=== PATIENT | male | born 1940 | race Two or more races ===

== ENCOUNTER → 2017-06-10 | Outpatient (CLI) | payer MEDICARE, OTHER ==
--- NOTE | 2017-06-10 13:41 | XR ---
EXAMINATION TYPE: XR chest 2V DATE OF EXAM: 06/10/2017 COMPARISON: 02/14/2016 HISTORY: Shortness of breath TECHNIQUE: Frontal and lateral views of the chest are obtained. FINDINGS: Scattered senescent parenchymal changes noted. Hyperinflation compatible with COPD. No evidence for infiltrate. No evidence for atelectasis. Prominent right epicardial fat pad. Heart size is stable. Mediastinal structures are stable and grossly unremarkable. No evidence for hilar prominence. Degenerative changes dorsal spine. IMPRESSION: 1. No evidence for acute pulmonary disease.
== END | disposition home or self-care (01) ==
LOC: RADXRMAIN 13:20
PROVIDERS: ATTEND Family Medicine
DX: J18.9 Pneumonia, unspecified organism (principal)
CPT/HCPCS: 71020

== ENCOUNTER → 2018-05-19 | Outpatient (CLI) | payer MEDICARE, OTHER ==
--- NOTE | 2018-05-19 17:27 | XR ---
EXAMINATION TYPE: XR lumbosacral spine min 4V DATE OF EXAM: 05/19/2018 COMPARISON: NONE HISTORY: 77-year-old male chronic hip and back pain. M25.552, M25.551, M54.5 TECHNIQUE: 5 views FINDINGS: 5 lumbar type vertebral bodies. Facet arthropathy mid to lower lumbar spine. No pars interarticularis defect. Mild to moderate multilevel degenerative disc disease characterized by variable mild disc in terspace narrowing and endplate spondylosis. Vertebral body heights are preserved and alignment is ma intained. Degenerative thinning of the interspinous ligaments in the lower lumbar spine with abutment and near abutment of the spinous processes. IMPRESSION: 1. Facet arthropathy mid to lower lumbar spine and mild to moderate multilevel degenerative disc dise ase. 2. No vertebral compression collapse or malalignment. 3. Baastrup's disease.
--- NOTE | 2018-05-19 17:29 | XR ---
EXAMINATION TYPE: XR Hip Bilateral Complete DATE OF EXAM: 05/19/2018 COMPARISON: NONE HISTORY: 77-year-old male chronic hip and back pain TECHNIQUE: 2 views each side FINDINGS: Mild degenerative change at both hips with mild superolateral narrowing of hip joint space, right gre ater than left, marginal spurring, and mild subchondral sclerosis. No acute fracture, subluxation, or dislocation. IMPRESSION: Mild bilateral hip osteoarthrosis, right greater than left. No acute osseous abnormality seen.
== END | disposition home or self-care (01) ==
LOC: RADXRMAIN 12:50
PROVIDERS: ATTEND Family Medicine
DX: M51.36 Other intervertebral disc degeneration, lumbar region (principal); M46.96 Unspecified inflammatory spondylopathy, lumbar region; M48.26 Kissing spine, lumbar region; M16.0 Bilateral primary osteoarthritis of hip
CPT/HCPCS: 72110; 73521

== ENCOUNTER 2019-12-14 16:00 | Emergency (ER) | payer MEDICARE, OTHER ==
[2019-12-14 16:08] VITALS: PULSE 62
[2019-12-14] MEDS ORDERED: SODIUM CHLORIDE 0.9% 500 ML 500 ML IV STA (16:24)
[2019-12-14] MEDS ORDERED: SODIUM CHLORIDE 0.9% 1,000 ML IV STA (16:24)
[2019-12-14 17:02] LABS: Basophils % (A) 0 %; Eosinophils # (A) 0.1 k/uL (0-0.7); Eosinophils % (A) 1 %; HCT 43.7 % (39.0-53.0); HGB 14.3 gm/dL (13.0-17.5); Lymphocytes # (A) 0.9 k/uL (1.0-4.8); Lymphocytes % (A) 8 %; MCH 29.8 pg (25.0-35.0); MCHC 32.7 g/dL (31.0-37.0); MCV 91.2 fL (80.0-100.0); Mean Platelet Volume 7.8; Monocytes # (A) 0.6 k/uL (0-1.0); Monocytes % (A) 5 %; Neutrophils % (A) 84 %; Platelet Count 142 k/uL (150-450); RBC 4.79 m/uL (4.30-5.90); RDW 13.3 % (11.5-15.5); WBC 11.9 k/uL (3.8-10.6)
[2019-12-14 17:07] LABS: ALT 71 U/L (4-49); AST 106 U/L (17-59); African American GFR (CKD) 72 (>60 ml/min/1.73 sqM); Albumin 3.5 g/dL (3.5-5.0); Alkaline Phosphatase 71 U/L (38-126); Amylase <30 U/L (30-110); Anion Gap 9 mmol/L; Blood Urea Nitrogen 34 mg/dL (9-20); Calcium 8.8 mg/dL (8.4-10.2); Carbon Dioxide 24 mmol/L (22-30); Chloride 103 mmol/L (98-107); Glucose 192 mg/dL (74-99); Non-African American GFR(CKD) 62 (>60 ml/min/1.73 sqM); Potassium 3.9 mmol/L (3.5-5.1); Sodium 136 mmol/L (137-145); Total Protein 6.8 g/dL (6.3-8.2)
[2019-12-14 17:08] LABS: Partial Thromboplastin Time 23.7 sec (22.0-30.0)
--- NOTE | 2019-12-14 17:19 | XR ---
EXAMINATION TYPE: XR KUB DATE OF EXAM: 12/14/2019 5:03 PM CLINICAL HISTORY: Diarrhea for 3 days and weakness. Abdominal pain. TECHNIQUE: Three Upright KUB images of the abdomen are obtained. COMPARISON: None. FINDINGS: Scattered gas is seen in non-distended stomach. Gas is seen in non-distended colon. Some pa ucity of small bowel gas. Cholecystectomy clips are seen. Additional displaced clip into the pelvis o lui sacrum. Moderate narrowing of both hip joints. No pneumoperitoneum. IMPRESSION: Overall nonspecific but favor nonobstructive bowel gas pattern.
--- NOTE | 2019-12-14 17:26 | CT ---
EXAMINATION TYPE: CT brain cspine wo con DATE OF EXAM: 12/14/2019 COMPARISON: NONE HISTORY: confusion weakness and neck pain. CT DLP: 1702.5 mGycm. Automated Exposure Control for Dose Reduction was Utilized. TECHNIQUE: CT scan of the head and cervical spine are performed without contrast. FINDINGS: There is no acute intracranial hemorrhage or midline shift identified. Mild to moderate v entricular and sulcal prominence. Heck-white matter differentiation is fairly well maintained. The gl obes are intact and the visualized sinuses are clear. Cervical spine is visualized in its entirety from C1 through upper thoracic levels and demonstrates s traightened alignment without evidence of acute fracture or dislocation. Prevertebral soft tissue jose de jesus ears within normal limits. The C1-C2 articulation is within normal limits on the coronal images. Ve rtebral body heights are maintained. Mild disc space narrowing C5-C6 and C6-C7 levels with mild to mo derate spurring. Axial images show uncovertebral facet degenerative change. C4-C5 level causing moder ate right-sided narrowing. IMPRESSION: 1. There is no acute fracture or dislocation evident in the cervical spine. 2. No acute intracranial hemorrhage or midline shift is seen.
[2019-12-14] MEDS ORDERED: SODIUM CHLORIDE 0.9% 1,000 ML IV ONE (17:30)
--- NOTE | 2019-12-14 17:31 | ED ---
Nausea/Vomiting/Diarrhea HPI - General Chief complaint: Nausea/Vomiting/Diarrhea Stated complaint: Confusion, Diarrhea Time Seen by Provider: 12/14/19 16:24 Source: patient Mode of arrival: wheelchair Limitations: no limitations - History of Present Illness Initial comments: 79-year-old male presenting today for chief complaint of generalized weakness x 3 days. Patient states he has had diarrhea for the past 2 days. Family states he seemed confused on Friday. Patient's son who is bedside states that he seems much better today does not seem confused however on Friday patient seemed to have fallen out of bed refused to come to the ER. Patient denies any current symptoms he states his diarrhea has been getting better. He states he did feel weak the past 2 days but feels significantly better today. Patient is alert and oriented 4 in no distress. Patient denies fevers, cough, chest pain, shortness of breath. Denies headaches, dizziness, neck pain, speech or visual changes, denies weakness or sensation deficits. Patient denies leg swelling. Patient denies abdominal pin or vomiting. Patient appears well on arrival no acute distress. - Related Data Previous Rx's Medication Instructions Recorded Cefpodoxime Proxetil [Vantin] 200 mg PO Q12HR 10 Days #20 tab 12/14/19 Allergies Allergy/AdvReac Type Severity Reaction Status Date / Time No Known Allergies Allergy Verified 12/14/19 16:08 Review of Systems ROS Statement: Those systems with pertinent positive or pertinent negative responses have been documented in the HPI. ROS Other: All systems not noted in ROS Statement are negative. Past Medical History Past Medical History: Hypertension History of Any Multi-Drug Resistant Organisms: None Reported Past Surgical History: Cholecystectomy Past Psychological History: No Psychological Hx Reported Smoking Status: Never smoker Past Alcohol Use History: None Reported Past Drug Use History: None Reported General Exam - General Exam Comments Initial Comments: General: The patient is awake and alert, in no distress, and does not appear acutely ill. Eye: + 3mm pupils are equal, round and reactive to light, extra-ocular movements are intact. No nystagmus. There is normal conjunctiva bilaterally. No signs of icterus. No raccoon no Alva's Ears, nose, mouth and throat: There are moist mucous membranes and no oral lesions. Neck: The neck is supple, there is no tenderness or JVD. Cardiovascular: There is a regular rate and rhythm. No murmur, rub or gallop is appreciated. Respiratory: Lungs are clear to auscultation, respirations are non-labored, breath sounds are equal. No wheezes, stridor, rales, or rhonchi. Gastrointestinal: Soft, non-distended, non-tender abdomen without masses or organomegaly noted. There is no rebound or guarding present. Musculoskeletal: Normal ROM, no tenderness. Strength 5/5. Sensation intact. Ra dial pulses equal bilaterally 2+. Neurological: A&O x 3. CN II-XII intact, There are no obvious motor or sensory deficits. Coordination appears grossly intact. Speech is normal. Skin: Skin is warm and dry and no rashes or lesions are noted. No LE edema/or swelling. Psychiatric: Cooperative, appropriate mood & affect, normal judgment. Limitations: no limitations Course Vital Signs 12/14/19 12/14/19 16:03 19:34 Temperature 98.0 F 98.7 F Pulse Rate 62 62 Respiratory 20 16 Rate Blood Pressure 126/70 137/77 O2 Sat by Pulse 98 97 Oximetry Medical Decision Making - Medical Decision Making 39-year-old male presenting for 2-3 days of diarrhea that is now subsiding however was confused per family 2 days ago. Patient at baseline now per family. Patient had an episode where he seemed confused in a generalized sense approximately 3 weeks ago in addition to episode 2 days ago. Deny stroke like symptoms. Localizing symptoms aside from the diarrhea. Patient has no other co mplaints. Labs mild leukocytosis. Patient UA consistent with UTI which may be cause of symptoms along with dehydration from diarrhea that has almost resolved. No fevers. Patient appears well, CT brain (-) for acute process. Patient offered admission, refused stating he would like to go home and trial oral antibiotics. Given 1 dose of rocephin prior to discharge.. Patient family is also agreeable to care plan and discharge--patient discharged appearing well. - Lab Data Result diagrams: 12/14/19 16:44 12/14/19 16:44 Lab Results 12/14/19 12/14/19 12/14/19 Range/Units 16:44 16:44 16:44 WBC 11.9 H (3.8-10.6) k/uL RBC 4.79 (4.30-5.90) m/uL Hgb 14.3 (13.0-17.5) gm/dL Hct 43.7 (39.0-53.0) % MCV 91.2 (80.0-100.0) fL MCH 29.8 (25.0-35.0) pg MCHC 32.7 (31.0-37.0) g/dL RDW 13.3 (11.5-15.5) % Plt Count 142 L (150-450) k/uL Neutrophils % 84 % Lymphocytes % 8 % Monocytes % 5 % Eosinophils % 1 % Basophils % 0 % Neutrophils # 10.0 H (1.3-7.7) k/uL Lymphocytes # 0.9 L (1.0-4.8) k/uL Monocytes # 0.6 (0-1.0) k/uL Eosinophils # 0.1 (0-0.7) k/uL Basophils # 0.0 (0-0.2) k/uL PT 10.0 (9.0-12.0) sec INR 1.0 (<1.2) APTT 23.7 (22.0-30.0) sec Sodium 136 L (137-145) mmol/L Potassium 3.9 (3.5-5.1) mmol/L Chloride 103 (98-107) mmol/L Carbon Dioxide 24 (22-30) mmol/L Anion Gap 9 mmol/L BUN 34 H (9-20) mg/dL Creatinine 1.12 (0.66-1.25) mg/dL Est GFR (CKD-EPI)AfAm 72 (>60 ml/min/1.73 sqM) Est GFR (CKD-EPI)NonAf 62 (>60 ml/min/1.73 sqM) Glucose 192 H (74-99) mg/dL Plasma Lactic Acid Bill (0.7-2.0) mmol/L Calcium 8.8 (8.4-10.2) mg/dL Total Bilirubin 1.0 (0.2-1.3) mg/dL AST 106 H (17-59) U/L ALT 71 H (4-49) U/L Alkaline Phosphatase 71 (38-126) U/L Total Protein 6.8 (6.3-8.2) g/dL Albumin 3.5 (3.5-5.0) g/dL Amylase <30 L (30-110) U/L Lipase 53 (23-300) U/L Urine Color Urine Appearance (Clear) Urine pH (5.0-8.0) Ur Specific [place] (1.001-1.035) Urine Protein (Negative) Urine Glucose (UA) (Negative) Urine Ketones (Negative) Urine Blood (Negative) Urine Nitrite (Negative) Urine Bilirubin (Negative) Urine Urobilinogen (<2.0) mg/dL Ur Leukocyte Esterase (Negative) Urine RBC (0-5) /hpf Urine WBC (0-5) /hpf Urine WBC Clumps (None) /hpf Urine Bacteria (None) /hpf Urine Mucus (None) /hpf 12/14/19 12/14/19 Range/Units 16:44 18:30 WBC (3.8-10.6) k/uL RBC (4.30-5.90) m/uL Hgb (13.0-17.5) gm/dL Hct (39.0-53.0) % MCV (80.0-100.0) fL MCH (25.0-35.0) pg MCHC (31.0-37.0) g/dL RDW (11.5-15.5) % Plt Count (150-450) k/uL Neutrophils % % Lymphocytes % % Monocytes % % Eosinophils % % Basophils % % Neutrophils # (1.3-7.7) k/uL Lymphocytes # (1.0-4.8) k/uL Monocytes # (0-1.0) k/uL Eosinophils # (0-0.7) k/uL Basophils # (0-0.2) k/uL PT (9.0-12.0) sec INR (<1.2) APTT (22.0-30.0) sec Sodium (137-145) mmol/L Potassium (3.5-5.1) mmol/L Chloride (98-107) mmol/L Carbon Dioxide (22-30) mmol/L Anion Gap mmol/L BUN (9-20) mg/dL Creatinine (0.66-1.25) mg/dL Est GFR (CKD-EPI)AfAm (>60 ml/min/1.73 sqM) Est GFR (CKD-EPI)NonAf (>60 ml/min/1.73 sqM) Glucose (74-99) mg/dL Plasma Lactic Acid Bill 1.5 (0.7-2.0) mmol/L Calcium (8.4-10.2) mg/dL Total Bilirubin (0.2-1.3) mg/dL AST (17-59) U/L ALT (4-49) U/L Alkaline Phosphatase (38-126) U/L Total Protein (6.3-8.2) g/dL Albumin (3.5-5.0) g/dL Amylase (30-110) U/L Lipase (23-300) U/L Urine Color Yellow Urine Appearance Cloudy (Clear) Urine pH 6.0 (5.0-8.0) Ur Specific [place] 1.021 (1.001-1.035) Urine Protein 2+ H (Negative) Urine Glucose (UA) Negative (Negative) Urine Ketones Trace H (Negative) Urine Blood Moderate H (Negative) Urine Nitrite Negative (Negative) Urine Bilirubin Negative (Negative) Urine Urobilinogen 2.0 (<2.0) mg/dL Ur Leukocyte Esterase Large H (Negative) Urine RBC 51 H (0-5) /hpf Urine WBC >182 H (0-5) /hpf Urine WBC Clumps Many H (None) /hpf Urine Bacteria Many H (None) /hpf Urine Mucus Few H (None) /hpf Disposition Clinical Impression: UTI (urinary tract infection), Dehydration, History of confusion, Generalized weakness, Hx of fall Disposition: HOME SELF-CARE Condition: Good Instructions (If sedation given, give patient instructions): Urinary Tract Infection in Men (ED), Urinary Tract Infection in Older Adults (ED) Additional Instructions: Please use medication as discussed. Please follow-up with family doctor tomorrow as scheduled, please schedule an appointment with urology in next week. Please return to emergency room if the symptoms increase or worsen or for any other concerns. Prescriptions: Cefpodoxime Proxetil [Vantin] 200 mg PO Q12HR 10 Days #20 tab Is patient prescribed a controlled substance at d/c from ED?: No Referrals: Robert Beltran DO [Primary Care Provider] - 1-2 days Oneal Galloway MD [STAFF PHYSICIAN] - 1-2 days Time of Disposition: 19:03
[2019-12-14 18:47] LABS: Appearance,Urine Cloudy (Clear); Bacteria,Urine Many /hpf; Bilirubin,Urine Negative (Negative); Blood,Urine Moderate (Negative); Color,Urine Yellow; Glucose,Urine (UA) Negative (Negative); Ketones,Urine Trace (Negative); Leukocyte Esterase,Urine Large (Negative); Mucus,Urine Few /hpf; Nitrite,Urine Negative (Negative); Protein,Urine 2+ (Negative); RBC,Urine 51 /hpf (0-5); Specific Gravity,Urine 1.021 (1.001-1.035); WBC,Urine >182 /hpf (0-5)
[2019-12-14 19:37] VITALS: BP 137/77; RESP 16; TEMP 98.7
== END 2019-12-14 19:42 | disposition home or self-care (01) ==
LOC: EC 16:00
DX: N39.0 Urinary tract infection, site not specified (principal); E86.0 Dehydration; D72.829 Elevated white blood cell count, unspecified; I10 Essential (primary) hypertension; Z87.898 Personal history of other specified conditions; Z91.81 History of falling
CPT/HCPCS: 36415; 93005; 80053; 82150; 83605; 83690; 85025; 85610; 85730; 81001; 87086; 74018; 72125; 70450; 99285; 96365; 96361 ×2; J0696; 87077; 87186

== ENCOUNTER 2020-11-29 14:28 | Emergency (ER) | payer MEDICARE, OTHER ==
[2020-11-29 15:00] VITALS: RESP 16; TEMP 98
[2020-11-29] MEDS ORDERED: SODIUM CHLORIDE 0.9% 1,000 ML IV STA (15:10)
[2020-11-29 15:39] LABS: Basophils # (A) 0.1 k/uL (0-0.2); Basophils % (A) 1 %; Eosinophils # (A) 0.1 k/uL (0-0.7); Eosinophils % (A) 1 %; HCT 39.9 % (39.0-53.0); HGB 13.9 gm/dL (13.0-17.5); Lymphocytes # (A) 0.8 k/uL (1.0-4.8); Lymphocytes % (A) 13 %; MCH 30.6 pg (25.0-35.0); MCHC 34.9 g/dL (31.0-37.0); MCV 87.4 fL (80.0-100.0); Mean Platelet Volume 7.3; Monocytes # (A) 0.3 k/uL (0-1.0); Monocytes % (A) 6 %; Neutrophils # (A) 4.8 k/uL (1.3-7.7); Neutrophils % (A) 77 %; Platelet Count 233 k/uL (150-450); RBC 4.56 m/uL (4.30-5.90); RDW 13.3 % (11.5-15.5); WBC 6.3 k/uL (3.8-10.6)
[2020-11-29 15:50] LABS: Albumin 3.5 g/dL (3.5-5.0); Calcium 8.9 mg/dL (8.4-10.2); Total Bilirubin 0.7 mg/dL (0.2-1.3); Total Protein 6.8 g/dL (6.3-8.2)
--- NOTE | 2020-11-29 15:52 | ED ---
General Adult HPI - General Chief complaint: Weakness Stated complaint: sent from for dehydration Time Seen by Provider: 11/29/20 15:03 Source: patient, family, RN notes reviewed, old records reviewed Mode of arrival: wheelchair Limitations: no limitations - History of Present Illness Initial comments: 80-year-old male presenting for evaluation of fatigue, generalized weakness. He had been seen by his primary care physician and was sent to the emergency department for evaluation. He received [employer] vaccine approximately one week ago and has had weakness since. He denies vomiting but has had some diarrhea as well. No dysuria or hematuria. No headache. No measured fever. No focal numbness or weakness. No central chest pain. He was sent in by his primary care physician to rule out blood clots as they had noted some bilateral lower extremity tenderness on exam. - Related Data Previous Rx's Medication Instructions Recorded Cefpodoxime Proxetil [Vantin] 200 mg PO Q12HR 10 Days #20 tab 12/14/19 Allergies Allergy/AdvReac Type Severity Reaction Status Date / Time No Known Allergies Allergy Verified 12/14/19 16:08 Review of Systems ROS Statement: Those systems with pertinent positive or pertinent negative responses have been documented in the HPI. ROS Other: All systems not noted in ROS Statement are negative. Past Medical History Past Medical History: Hypertension History of Any Multi-Drug Resistant Organisms: None Reported Past Surgical History: Cholecystectomy Past Psychological History: No Psychological Hx Reported Smoking Status: Never smoker Past Alcohol Use History: None Reported Past Drug Use History: None Reported General Exam Limitations: no limitations General appearance: alert, in no apparent distress Head exam: Present: atraumatic, normocephalic Eye exam: Present: normal appearance, PERRL ENT exam: Present: mucous membranes dry Neck exam: Present: normal inspection. Absent: tenderness, meningismus Respiratory exam: Present: normal lung sounds bilaterally. Absent: respiratory distress, wheezes Cardiovascular Exam: Present: regular rate, normal rhythm GI/Abdominal exam: Present: soft. Absent: distended, tenderness, guarding Extremities exam: Present: normal inspection, normal capillary refill. Absent: pedal edema, calf tenderness Neurological exam: Present: alert, oriented X3, CN II-XII intact. Absent: motor sensory deficit Psychiatric exam: Present: normal affect, normal mood Skin exam: Present: warm, dry, intact. Absent: cyanosis, diaphoretic Course Vital Signs 11/29/20 14:57 Temperature 98.0 F Pulse Rate 74 Respiratory 16 Rate Blood Pressure 130/89 O2 Sat by Pulse 96 Oximetry EKG Findings - EKG Comments: EKG Findings:: EKG: Sinus rhythm rate of 67, SC interval 158, QRS duration 84, QTC 433, no ST segment elevation. Medical Decision Making - Medical Decision Making X-ray showing mild interstitial pneumonia, ultrasound negative for DVT. Patient has a mild transaminitis, otherwise laboratory testing is unremarkable. He is positive for coronavirus and does meet the guidelines for monoclonal antibody treatment. He is agreeable with confusion. This is administered in the emergency department and the patient will quarantine at home. Her daughters are discussed. - Lab Data Result diagrams: 11/29/20 15:21 11/29/20 15: Lab Results 11/29/20 11/29/20 11/29/20 Range/Units 15:21 15:21 15:21 WBC 6.3 (3.8-10.6) k/uL RBC 4.56 (4.30-5.90) m/uL Hgb 13.9 (13.0-17.5) gm/dL Hct 39.9 (39.0-53.0) % MCV 87.4 (80.0-100.0) fL MCH 30.6 (25.0-35.0) pg MCHC 34.9 (31.0-37.0) g/dL RDW 13.3 (11.5-15.5) % Plt Count 233 (150-450) k/uL MPV 7.3 Neutrophils % 77 % Lymphocytes % 13 % Monocytes % 6 % Eosinophils % 1 % Basophils % 1 % Neutrophils # 4.8 (1.3-7.7) k/uL Lymphocytes # 0.8 L (1.0-4.8) k/uL Monocytes # 0.3 (0-1.0) k/uL Eosinophils # 0.1 (0-0.7) k/uL Basophils # 0.1 (0-0.2) k/uL PT 10.5 (9.0-12.0) sec INR 1.0 (<1.2) APTT 21.3 L (22.0-30.0) sec Sodium 135 L (137-145) mmol/L Potassium 4.0 (3.5-5.1) mmol/L Chloride 101 (98-107) mmol/L Carbon Dioxide 22 (22-30) mmol/L Anion Gap 12 mmol/L BUN 22 H (9-20) mg/dL Creatinine 0.96 (0.66-1.25) mg/dL Est GFR (CKD-EPI)AfAm 87 (>60 ml/min/1.73 sqM) Est GFR (CKD-EPI)NonAf 75 (>60 ml/min/1.73 sqM) Glucose 195 H (74-99) mg/dL Plasma Lactic Acid Bill (0.7-2.0) mmol/L Calcium 8.9 (8.4-10.2) mg/dL Magnesium 2.0 (1.6-2.3) mg/dL Total Bilirubin 0.7 (0.2-1.3) mg/dL AST 95 H (17-59) U/L ALT 116 H (4-49) U/L Alkaline Phosphatase 71 (38-126) U/L Troponin I (0.000-0.034) ng/mL Total Protein 6.8 (6.3-8.2) g/dL Albumin 3.5 (3.5-5.0) g/dL Coronavirus (PCR) (Not Detectd) 11/29/20 11/29/20 11/29/20 Range/Units 15:21 15:21 15:21 WBC (3.8-10.6) k/uL RBC (4.30-5.90) m/uL Hgb (13.0-17.5) gm/dL Hct (39.0-53.0) % MCV (80.0-100.0) fL MCH (25.0-35.0) pg MCHC (31.0-37.0) g/dL RDW (11.5-15.5) % Plt Count (150-450) k/uL MPV Neutrophils % % Lymphocytes % % Monocytes % % Eosinophils % % Basophils % % Neutrophils # (1.3-7.7) k/uL Lymphocytes # (1.0-4.8) k/uL Monocytes # (0-1.0) k/uL Eosinophils # (0-0.7) k/uL Basophils # (0-0.2) k/uL PT (9.0-12.0) sec INR (<1.2) APTT (22.0-30.0) sec Sodium (137-145) mmol/L Potassium (3.5-5.1) mmol/L Chloride (98-107) mmol/L Carbon Dioxide (22-30) mmol/L Anion Gap mmol/L BUN (9-20) mg/dL Creatinine (0.66-1.25) mg/dL Est GFR (CKD-EPI)AfAm (>60 ml/min/1.73 sqM) Est GFR (CKD-EPI)NonAf (>60 ml/min/1.73 sqM) Glucose (74-99) mg/dL Plasma Lactic Acid Bill 1.7 (0.7-2.0) mmol/L Calcium (8.4-10.2) mg/dL Magnesium (1.6-2.3) mg/dL Total Bilirubin (0.2-1.3) mg/dL AST (17-59) U/L ALT (4-49) U/L Alkaline Phosphatase (38-126) U/L Troponin I <0.012 (0.000-0.034) ng/mL Total Protein (6.3-8.2) g/dL Albumin (3.5-5.0) g/dL Coronavirus (PCR) Detected A (Not Detectd) Disposition Clinical Impression: COVID-19 Disposition: HOME SELF-CARE Condition: Good Instructions (If sedation given, give patient instructions): Coronavirus Disease 2019 (COVID-19) Additional Instructions: Please quarantined yourself at home for 10 days. Please return with any worsening respiratory issues. Is patient prescribed a controlled substance at d/c from ED?: No Referrals: Robert Beltran DO [Primary Care Provider] - 1-2 days Time of Disposition: 17:05
[2020-11-29 15:57] LABS: Prothrombin Time 10.5 sec (9.0-12.0)
[2020-11-29 15:59] LABS: Partial Thromboplastin Time 21.3 sec (22.0-30.0)
--- NOTE | 2020-11-29 16:24 | US ---
EXAMINATION TYPE: US venous doppler duplex LE DATE OF EXAM: 11/29/2020 4:10 PM COMPARISON: NONE CLINICAL HISTORY: DVT. Dehydrated and pain; no chest pain, or leg swelling per patient. SIDE PERFORMED: Bilateral TECHNIQUE: The lower extremity deep venous system is examined utilizing real time linear array sonog matt with graded compression, doppler sonography and color-flow sonography. VESSELS IMAGED: Common Femoral Vein Deep Femoral Vein Greater Saphenous Vein * Femoral Vein Popliteal Vein Small Saphenous Vein * Proximal Calf Veins (* superficial vessels) Mobile, internal echoes are seen within Right CFV, Right Femoral Vein, Left CFV, Left Femoral Vein, a nd distal Left Popliteal Vein and is suggestive of thick blood (Rouleaux Effect). Bilateral Deep Vein s compress normally. Grayscale, color doppler, spectral doppler imaging performed of the deep veins of the lower extremiti es. There is normal flow, compressibility, vascular waveforms. IMPRESSION: No ultrasound evidence for acute DVT in either lower extremity, satisfactory compressibi lity is documented bilaterally.
--- NOTE | 2020-11-29 16:52 | XR ---
EXAMINATION TYPE: XR chest 2V DATE OF EXAM: 11/29/2020 COMPARISON: 06/10/2017 HISTORY: Cough TECHNIQUE: FINDINGS: Heart appears enlarged. There is mild increased pulmonary interstitial markings. There is n o pleural effusion. There is no obvious heart failure. There are chest leads. IMPRESSION: Increased pulmonary interstitial density compared to old exam. This could be acute mild h eart failure or mild interstitial pneumonia.
[2020-11-29 17:08] VITALS: BP 141/89; PULSE 79
[2020-11-29] MEDS ORDERED: SODIUM CHLORIDE 0.9% 50 ML IVPB ONE (17:15)
[2020-11-29] MEDS ORDERED: BAMLANIVIMAB (EUA) 700 MG, ETESEVIMAB (EUA) 1,400 MG in SODIUM CHLORIDE 0.9% 50 ML IVPB ONE (17:30)
== END 2020-11-29 19:30 | disposition home or self-care (01) ==
LOC: EC 14:28
DX: U07.1 COVID-19 (principal); I10 Essential (primary) hypertension; M79.604 Pain in right leg; M79.605 Pain in left leg
CPT/HCPCS: 99285 ×2; 96365 ×2; 96361 ×2; 36415; 93005; 80053; 83605; 83735; 84484; 85025; 85610; 85730; 87635; 71046; 93970; Q0245

== ENCOUNTER → 2022-06-19 | Outpatient (CLI) | payer MEDICARE, OTHER ==
--- NOTE | 2022-06-19 13:08 | CT ---
EXAMINATION TYPE: CT brain wo/w con DATE OF EXAM: 06/19/2022 COMPARISON: Prior CT brain December 14, 2019 HISTORY: syncopal episodes and collapse CT DLP: 2165.9 mGycm Automated exposure control for dose reduction was used. CONTRAST: CT scan of the head is performed without and with IV Contrast, patient injected with 70 mL of Isovue 300. FINDINGS: No acute intracranial hemorrhage or midline shift. Mild to moderate ventricular and sulcal prominence redemonstrated. Heck-white matter differentiation fairly well maintained. Postcontrast images show n o suspicious enhancing intraparenchymal mass. The globes are intact and the visualized sinuses are c lear. No suspicious opacification of the mastoid air cells. IMPRESSION: Mild to moderate diffuse cerebral atrophy redemonstrated. No suspicious enhancing masses.
== END | disposition home or self-care (01) ==
LOC: RADCTMAIN 11:32
PROVIDERS: ATTEND Family Medicine
DX: G31.9 Degenerative disease of nervous system, unspecified (principal)
CPT/HCPCS: 82565; 84520; 70470; 36415; Q9967

== ENCOUNTER → 2023-07-01 | Outpatient (CLI) | payer MEDICARE, OTHER ==
--- NOTE | 2023-07-01 10:59 | XR ---
EXAMINATION TYPE: XR knee complete bilateral DATE OF EXAM: 07/01/2023 CLINICAL HISTORY: pain TECHNIQUE: Three views of the bilateral knees are obtained. COMPARISON: None. FINDINGS: There is no acute fracture/dislocation. The tri-compartment joint spaces appear mildly na rrowed. The overlying soft tissue appears unremarkable. IMPRESSION: There is no acute fracture or dislocation.ICD 10 NO FRACTURE, INITIAL EVALUATION
== END | disposition home or self-care (01) ==
LOC: RADXRMAIN 10:01
PROVIDERS: ATTEND Family Medicine
DX: M23.92 Unspecified internal derangement of left knee (principal)

== ENCOUNTER 2023-07-16 10:59 | Inpatient (IN) | payer MEDICARE, OTHER ==
[2023-07-16] MEDS ORDERED: ACETAMINOPHEN TAB 500 MG TAB PO STA (12:08)
[2023-07-16 12:39] LABS: Basophils % (A) 0 %; Eosinophils % (A) 0 %; HCT 40.7 % (39.0-53.0); HGB 13.8 gm/dL (13.0-17.5); Lymphocytes # (A) 0.9 k/uL (1.0-4.8); Lymphocytes % (A) 11 %; MCH 30.9 pg (25.0-35.0); MCHC 33.9 g/dL (31.0-37.0); MCV 91.4 fL (80.0-100.0); Mean Platelet Volume 7.9; Monocytes # (A) 0.5 k/uL (0-1.0); Monocytes % (A) 6 %; Neutrophils % (A) 82 %; Platelet Count 170 k/uL (150-450); RBC 4.45 m/uL (4.30-5.90); RDW 13.3 % (11.5-15.5); WBC 8.6 k/uL (3.8-10.6)
--- NOTE | 2023-07-16 12:42 | ED ---
Abdominal Pain HPI - General Chief Complaint: Abdominal Pain Stated Complaint: infection Time Seen by Provider: 07/16/23 11:04 Source: patient, EMS Mode of arrival: EMS Limitations: no limitations - History of Present Illness Initial Comments: 82-year-old male presents to the emergency department for weakness. is at bedside and helps provide the history. States that the patient has been so weak over the past couple of days that he has not been getting up from bed. He was diagnosed with a urinary tract infection last week and was placed on Cipro. He was having some diarrhea and the Cipro made it worse. He is having uncontrolled bowel movements. Denies black or bloody stools. Denies history of C. diff. He has felt warm but has not taken his temperature. Upon hospital arrival the patient is found to be febrile. He admits to some development of some sinus congestion. Mild nonproductive cough. No shortness of breath. No sick con tacts. He continues to have a foul odor from his urine. No chest pain. No other alleviating, precipitating or modifying factors - Related Data Home Medications Medication Instructions Recorded Confirmed Budesonide [Pulmicort] 0.5 mg INHALATION RT-BID 07/16/23 07/16/23 Ibuprofen [Motrin] 800 mg PO TID PRN 07/16/23 07/16/23 Ipratropium-Albuterol Nebulize 3 ml INHALATION RT-QID PRN 07/16/23 07/16/23 [Duoneb 0.5 mg-3 mg/3 ml Soln] Tamsulosin [Flomax] 0.4 mg PO DAILY 07/16/23 07/16/23 atenoloL [Tenormin] 50 mg PO HS 07/16/23 07/16/23 Allergies Allergy/AdvReac Type Severity Reaction Status Date / Time No Known Allergies Allergy Verified 07/16/23 12:36 Review of Systems ROS Statement: Those systems with pertinent positive or pertinent negative responses have been documented in the HPI. ROS Other: All systems not noted in ROS Statement are negative. Past Medical History Past Medical History: Diabetes Mellitus, Hyperlipidemia, Hypertension Additional Past Medical History / Comment(s): Type 2, UTI History of Any Multi-Drug Resistant Organisms: None Reported Past Surgical History: Cholecystectomy Past Psychological History: No Psychological Hx Reported Smoking Status: Never smoker Past Alcohol Use History: None Reported Past Drug Use History: None Reported General Exam Limitations: no limitations General appearance: alert, in no apparent distress Head exam: Present: atraumatic, normocephalic, normal inspection Eye exam: Present: normal appearance, PERRL, EOMI. Absent: scleral icterus, conjunctival injection, periorbital swelling ENT exam: Present: normal exam, mucous membranes moist Neck exam: Present: normal inspection. Absent: tenderness, meningismus, lymphadenopathy Respiratory exam: Present: normal lung sounds bilaterally. Absent: respiratory distress, wheezes, rales, rhonchi, stridor Cardiovascular Exam: Present: regular rate, normal rhythm, normal heart sounds. Absent: systolic murmur, diastolic murmur, rubs, gallop, clicks GI/Abdominal exam: Present: soft, normal bowel sounds. Absent: distended, tenderness, guarding, rebound, rigid Extremities exam: Present: normal inspection, full ROM, normal capillary refill. Absent: tenderness, pedal edema, joint swelling, calf tenderness Back exam: Present: normal inspection Neurological exam: Present: alert, oriented X3, CN II-XII intact Psychiatric exam: Present: normal affect, normal mood Skin exam: Present: warm, dry, intact, normal color. Absent: rash Course Vital Signs 07/16/23 07/16/23 11:06 13:12 Temperature 100.2 F H 98.4 F Pulse Rate 75 Respiratory 18 Rate Blood Pressure 147/68 O2 Sat by Pulse 94 L Oximetry Medical Decision Making - Medical Decision Making Was pt. sent in by a medical professional or institution (DAVID Banuelos, F[employer]IT[employer] SAL[employer]SULTANT, urgent care, hospital, or group home...) When possible be specific @ -No Did you speak to anyone other than the patient for history (EMS, parent, family, police, friend...)? What history was obtained from this source @ -EMS and Did you review nursing and triage notes (agree or disagree)? Why? @ -I reviewed and agree with nursing and triage notes Were old charts reviewed (outside hosp., previous admission, EMS record, old EKG, old radiological studies, urgent care reports/EKG's, group home records)? Report findings @ -No old charts were reviewed Differential Diagnosis (chest pain, altered mental status, abdominal pain women, abdominal pain men, vaginal bleeding, weakness, fever, dyspnea, syncope, headache, dizziness, GI bleed, back pain, seizure, CVA, palpatations, mental health, musculoskeletal)? @ -Differential Weakness: Hypoglycemia, shock, sepsis, hyponatremia, anemia, infection, NE, ETOH, adverse medicine reaction, overdose, stroke, this is not meant to be an all-inclusive list. EKG interpreted by me (3pts min.). @ -Yes and demonstrates sinus rhythm with a rate of 77. CA interval 138. QRS 96. QTC of 416. No acute ST segment elevations or depressions X-rays interpreted by me (1pt min.). @ -Yes and demonstrates mild vascular congestion CT interpreted by me (1pt min.). @ -None done U/S interpreted by me (1pt. min.). @ -None done What testing was considered but not performed or refused? (CT, X-rays, U/S, labs)? Why? @ -None What meds were considered but not given or refused? Why? @ -None Did you discuss the management of the patient with other professionals (professionals i.e. , PA, FURNITURE SALES CONSULTANT, lab, RT, psych nurse, public health social worker, account consultant, teacher, security police officer, child welfare caseworker)? Give summary @ -dr ruiz Was smoking cessation discussed for >3mins.? @ -No Was critical care preformed (if so, how long)? @ -No Were there social determinants of health that impacted care today? How? (Homelessness, low income, unemployed, alcoholism, drug addiction, transportation, low edu. Level, literacy, decrease access to med. care, correction, rehab)? @ -No Was there de-escalation of care discussed even if they declined (Discuss DNR or withdrawal of care, Hospice)? DNR status @ -No What co-morbidities impacted this encounter? (DM, HTN, Smoking, COPD, CAD, Cance r, CVA, ARF, Chemo, Hep., AIDS, mental health diagnosis, sleep apnea, morbid obesity)? @ -Recurrent UTIs Was patient admitted / discharged? Hospital course, mention meds given and route, prescriptions, significant lab abnormalities, going to OR and other pertinent info. @ -Admitted. Upon arrival patient was placed into hallway 10 . Thorough history and physical exam was performed. IV is established. Laboratory studies are conducted. Patient is swabbed due to his fever. Patient is Covid- positive. Requested urinalysis and stool studies. Due to his profound weakness I recommended admission. Patient was agreeable to this. Spoke with Dr. Ruiz who will admit the patient Undiagnosed new problem with uncertain prognosis? @ -No Drug Therapy requiring intensive monitoring for toxicity (Heparin, Nitro, Insulin, Cardizem)? @ -No Were any procedures done? @ -No Diagnosis/symptom? @ -Inability to ambulate, acute Covid infection, recurrent UTI Acute, or Chronic, or Acute on Chronic? @ -Acute Uncomplicated (without systemic symptoms) or Complicated (systemic symptoms)? @ -Complicated Side effects of treatment? @ -No Exacerbation, Progression, or Severe Exacerbation? @ -No Poses a threat to life or bodily function? How? (Chest pain, USA, NE, pneumonia, PE, COPD, DKA, ARF, appy, cholecystitis, CVA, Diverticulitis, Homicidal, Suicidal, threat to staff... and all critical care pts) @ -No - Lab Data Result diagrams: 07/16/23 11:51 07/16/23 11:51 Lab Results 07/16/23 07/16/23 07/16/23 Range/Units 11:51 11:51 11:51 WBC 8.6 (3.8-10.6) k/uL RBC 4.45 (4.30-5.90) m/uL Hgb 13.8 (13.0-17.5) gm/dL Hct 40.7 (39.0-53.0) % MCV 91.4 (80.0-100.0) fL MCH 30.9 (25.0-35.0) pg MCHC 33.9 (31.0-37.0) g/dL RDW 13.3 (11.5-15.5) % Plt Count 170 (150-450) k/uL MPV 7.9 Neutrophils % 82 % Lymphocytes % 11 % Monocytes % 6 % Eosinophils % 0 % Basophils % 0 % Neutrophils # 7.0 (1.3-7.7) k/uL Lymphocytes # 0.9 L (1.0-4.8) k/uL Monocytes # 0.5 (0-1.0) k/uL Eosinophils # 0.0 (0-0.7) k/uL Basophils # 0.0 (0-0.2) k/uL PT 11.4 (10.0-12.5) sec INR 1.0 (<1.2) APTT 24.1 (22.0-30.0) sec Sodium 137 (137-145) mmol/L Potassium 4.1 (3.5-5.1) mmol/L Chloride 100 (98-107) mmol/L Carbon Dioxide 26 (22-30) mmol/L Anion Gap 11 mmol/L BUN 18 (9-20) mg/dL Creatinine 0.92 (0.66-1.25) mg/dL Est GFR (CKD-EPI)AfAm 89 (>60 ml/min/1.73 sqM) Est GFR (CKD-EPI)NonAf 77 (>60 ml/min/1.73 sqM) Glucose 190 H (74-99) mg/dL Calcium 9.1 (8.4-10.2) mg/dL Magnesium 1.8 (1.6-2.3) mg/dL Total Bilirubin 0.8 (0.2-1.3) mg/dL AST 37 (17-59) U/L ALT 25 (4-49) U/L Alkaline Phosphatase 54 (38-126) U/L Troponin I (0.000-0.034) ng/mL NT-Pro-B Natriuret Pep 472 pg/mL Total Protein 7.2 (6.3-8.2) g/dL Albumin 4.1 (3.5-5.0) g/dL Influenza Type A (PCR) (Not Detectd) Influenza Type B (PCR) (Not Detectd) RSV (PCR) (Not Detectd) SARS-CoV-2 (PCR) (Not Detectd) 07/16/23 07/16/23 Range/Units 11:51 13:35 WBC (3.8-10.6) k/uL RBC (4.30-5.90) m/uL Hgb (13.0-17.5) gm/dL Hct (39.0-53.0) % MCV (80.0-100.0) fL MCH (25.0-35.0) pg MCHC (31.0-37.0) g/dL RDW (11.5-15.5) % Plt Count (150-450) k/uL MPV Neutrophils % % Lymphocytes % % Monocytes % % Eosinophils % % Basophils % % Neutrophils # (1.3-7.7) k/uL Lymphocytes # (1.0-4.8) k/uL Monocytes # (0-1.0) k/uL Eosinophils # (0-0.7) k/uL Basophils # (0-0.2) k/uL PT (10.0-12.5) sec INR (<1.2) APTT (22.0-30.0) sec Sodium (137-145) mmol/L Potassium (3.5-5.1) mmol/L Chloride (98-107) mmol/L Carbon Dioxide (22-30) mmol/L Anion Gap mmol/L BUN (9-20) mg/dL Creatinine (0.66-1.25) mg/dL Est GFR (CKD-EPI)AfAm (>60 ml/min/1.73 sqM) Est GFR (CKD-EPI)NonAf (>60 ml/min/1.73 sqM) Glucose (74-99) mg/dL Calcium (8.4-10.2) mg/dL Magnesium (1.6-2.3) mg/dL Total Bilirubin (0.2-1.3) mg/dL AST (17-59) U/L ALT (4-49) U/L Alkaline Phosphatase (38-126) U/L Troponin I <0.012 (0.000-0.034) ng/mL NT-Pro-B Natriuret Pep pg/mL Total Protein (6.3-8.2) g/dL Albumin (3.5-5.0) g/dL Influenza Type A (PCR) Not Detected (Not Detectd) Influenza Type B (PCR) Not Detected (Not Detectd) RSV (PCR) Not Detected (Not Detectd) SARS-CoV-2 (PCR) Detected A (Not Detectd) Disposition Clinical Impression: Weakness, Fever, UTI (urinary tract infection), COVID-19 Disposition: ADMITTED IP TO [facility] Condition: Stable Is patient prescribed a controlled substance at d/c from ED?: No Time of Disposition: 14:59 Decision to Admit Reason: Admit from EC Decision Date: 07/16/23 Decision Time: 15:00
[2023-07-16 12:51] LABS: ALT 25 U/L (4-49); AST 37 U/L (17-59); African American GFR (CKD) 89 (>60 ml/min/1.73 sqM); Albumin 4.1 g/dL (3.5-5.0); Alkaline Phosphatase 54 U/L (38-126); Anion Gap 11 mmol/L; Blood Urea Nitrogen 18 mg/dL (9-20); Calcium 9.1 mg/dL (8.4-10.2); Carbon Dioxide 26 mmol/L (22-30); Chloride 100 mmol/L (98-107); Glucose 190 mg/dL (74-99); Magnesium 1.8 mg/dL (1.6-2.3); Non-African American GFR(CKD) 77 (>60 ml/min/1.73 sqM); Potassium 4.1 mmol/L (3.5-5.1); Sodium 137 mmol/L (137-145); Total Bilirubin 0.8 mg/dL (0.2-1.3); Total Protein 7.2 g/dL (6.3-8.2)
[2023-07-16 12:59] LABS: NT-Pro-B-Type Natriuretic Pept 472 pg/mL
[2023-07-16 13:00] LABS: Partial Thromboplastin Time 24.1 sec (22.0-30.0); Prothrombin Time 11.4 sec (10.0-12.5)
--- NOTE | 2023-07-16 14:19 | XR ---
EXAMINATION TYPE: XR chest 2V DATE OF EXAM: 07/16/2023 COMPARISON: NONE HISTORY: Chest pain and cough. TECHNIQUE: Frontal and lateral views of the chest are obtained. FINDINGS: The cardiac silhouette is moderately enlarged with mild pulmonary edema. There is no focal consolidation. IMPRESSION: Cardiomegaly with mild pulmonary edema.
[2023-07-16] MEDS ORDERED: IBUPROFEN 400 MG TAB PO PRN (15:00)
[2023-07-16] MEDS ORDERED: NALOXONE 0.4 MG/ML 1 ML VIAL IV PRN (15:00)
[2023-07-16] MEDS ORDERED: ACETAMINOPHEN TAB 325 MG TAB PO PRN (15:00)
[2023-07-16] MEDS ORDERED: IPRATROPIUM-ALBUTEROL 3 ML NEB INHALATION PRN (15:06)
[2023-07-16] MEDS ORDERED: IBUPROFEN 800 MG TAB PO PRN (15:06)
[2023-07-16] MEDS ORDERED: ALBUTEROL HFA INHALER INHALATION PRN (15:44)
[2023-07-16] MEDS: SODIUM CHLORIDE 0.9% 1,000 ML IV SCH (16:02)
[2023-07-16 16:56] LABS: Appearance,Urine Turbid (Clear); Bilirubin,Urine Negative (Negative); Blood,Urine Small (Negative); Color,Urine Yellow; Glucose,Urine (UA) 1+ (Negative); Ketones,Urine 1+ (Negative); Leukocyte Esterase,Urine Large (Negative); Mucus,Urine Many /hpf; Nitrite,Urine Positive (Negative); PH, Urine 5.5 (5.0-8.0); Protein,Urine 2+ (Negative); RBC,Urine 21 /hpf (0-5); Specific Gravity,Urine 1.028 (1.001-1.035); Urobilinogen,Urine <2.0 mg/dL (<2.0); WBC,Urine 162 /hpf (0-5)
--- NOTE | 2023-07-16 17:43 | HP ---
HISTORY AND PHYSICAL CHIEF COMPLAINT: Abdominal pain and weakness. HISTORY OF PRESENT ILLNESS: This is an 82-year-old gentleman with a past medical history of multiple medical problems, being treated for a UTI in the outpatient setting. The patient was apparently weak and tired, and the patient was running fever also. The patient came to [facility] and was found to have COVID-19. The patient was admitted for further evaluation and treatment. There is no history of any fever, rigor, or chills at this time. PAST MEDICAL HISTORY: Reviewed includes diabetes mellitus, hypertension, and hyperlipidemia. Rest of the history and rest of the chart are also reviewed. HOME MEDICATIONS: Reviewed include DuoNeb. Doses and rest of the medications are noted. ALLERGIES: None. FAMILY HISTORY: No history of heart disease or strokes in the family. SOCIAL HISTORY: No history of smoking or alcohol intake. REVIEW OF SYSTEMS: Fourteen-point review is negative except as mentioned earlier. PHYSICAL EXAMINATION: VITAL SIGNS: Pulse is 75, blood pressure 147/68, respirations 18. T-max is 100.2. HEENT: Conjunctivae are normal. NECK: No jugular venous distention. CARDIOVASCULAR: S1 and S2 muffled. RESPIRATORY: Clear to auscultation. ABDOMEN: Soft, nontender, and obese. LEGS: No edema. NERVOUS SYSTEM: Nonfocal. SKIN: No ulcers or rashes. JOINTS: No active deforming arthropathy. ASSESSMENT: 1. Fever with possible urinary tract infection. 2. Acute COVID-19 infection. 3. Diabetes mellitus, type 2. 4. Hypertension. 5. Hyperlipidemia. 6. Urinary tract infection present on admission. 7. Dehydration. RECOMMENDATIONS AND DISCUSSION: In this 82-year-old gentleman presented with multiple complex medical issues, we will monitor the patient closely. I would recommend IV fluids. Symptomatic treatment. Infectious Disease evaluation. Prognosis is guarded because of the multiple complex medical issues. Further recommendations to follow. MMODL / IJN: [id number] /
[2023-07-16] MEDS ORDERED: BUDESONIDE 0.5 MG/2 ML NEBU INHALATION SCH (20:00)
[2023-07-16] MEDS ORDERED: ONDANSETRON 4 MG/2 ML VIAL IVP PRN (20:33)
[2023-07-16 21:00] LABS: Glucose,Whole Blood 186 mg/dL (70-110)
[2023-07-16] MEDS ORDERED: DEXTROSE 50% SYRINGE 50 ML IVP PRN ×2 (21:06)
[2023-07-16] MEDS: FLUTICASONE 110 MCG INHALER INHALATION SCH (21:30)
[2023-07-16] MEDS: CIPROFLOXACIN HCL 500 MG TAB PO SCH (23:35)
[2023-07-16] MEDS: atenoloL 50 MG TAB PO SCH (23:35)
[2023-07-17] MEDS: SODIUM CHLORIDE 0.9% 1,000 ML IV SCH ×2 (06:11→20:44)
[2023-07-17 06:28] LABS: Glucose,Whole Blood 176 mg/dL (70-110)
[2023-07-17] MEDS: INSULIN ASPART (NovoLOG) 100 UNIT/ML VIAL SQ SCH ×4 (07:22→20:44)
--- NOTE | 2023-07-17 09:07 | P.CONS ---
History of Present Illness - Reason for Consult Consult date: 07/16/23 covid Requesting physician: Priyanka Heard - Chief Complaint Weakness x few days - History of Present Illness Patient is a 82-year-old male with a past medical history significant for diabetes mellitus hypertension hyperlipidemia patient presenting to the hospital for evaluation of weakness patient mention has been getting weak over the last couple of days and has not been able to get out of the bed apparent the patient has been recently diagnosed with a UTI and has been treated with oral Cipro and has developed diarrhea associated with it patient denies having any headache did have mild URI symptoms patient denies having any chest pain mild shortness of breath did have mild cough which is dry in nature patient denies having any vomiting however does have decreased oral intake and abdominal pain and diarrhea but no blood or mucus in the stool, patient did have some difficulty urination occasional burning but no suprapubic or flank pain, patient on presentation to the hospital did have a low-grade fever 100.2 F patient was not tachycardic hypotensive or hypoxic patient did have white count of 8.6 with mild lymphopenia creatinine 0.92 liver enzymes are normal urine has been positive patient did tested positive for COVID chest x-ray cardiomegaly with mild pulmonary edema patient was admitted to the hospital infectious disease was consulted for COVID Review of Systems Positive point and negatives has been mentioned in the HPI, complete review of systems was performed and all other systems are negative Past Medical History Past Medical History: Diabetes Mellitus, Hyperlipidemia, Hypertension Additional Past Medical History / Comment(s): Type 2, UTI History of Any Multi-Drug Resistant Organisms: None Reported Past Surgical History: Cholecystectomy Past Psychological History: No Psychological Hx Reported Smoking Status: Never smoker Past Alcohol Use History: None Reported Past Drug Use History: None Reported Medications and Allergies Home Medications Medication Instructions Recorded Confirmed Type Budesonide [Pulmicort] 0.5 mg INHALATION RT-BID 07/16/23 07/16/23 History Ibuprofen [Motrin] 800 mg PO TID PRN 07/16/23 07/16/23 History Ipratropium-Albuterol Nebulize 3 ml INHALATION RT-QID PRN 07/16/23 07/16/23 History [Duoneb 0.5 mg-3 mg/3 ml Soln] Tamsulosin [Flomax] 0.4 mg PO DAILY 07/16/23 07/16/23 History atenoloL [Tenormin] 50 mg PO HS 07/16/23 07/16/23 History Acetaminophen Tab [Tylenol] 650 mg PO Q6HR PRN tab 07/18/23 Rx Ascorbic Acid [Vitamin C] 1,000 mg PO DAILY 30 Days #30 tab 07/18/23 Rx Zinc Sulfate [Orazinc] 220 mg PO DAILY 15 Days #15 cap 07/18/23 Rx cefUROXime axetiL [Ceftin] 500 mg PO BID 3 Days #6 tab 07/18/23 Rx Allergies Allergy/AdvReac Type Severity Reaction Status Date / Time No Known Allergies Allergy Verified 07/16/23 12:36 Physical Exam Vitals: Vital Signs Temp Pulse Resp BP Pulse Ox 07/16/23 16:39 77 18 135/61 97 07/16/23 13:12 98.4 F 07/16/23 11:06 100.2 F H 75 18 147/68 94 L Intake and Output 07/16/23 07/16/23 07/16/23 06:59 14:59 22:59 Other: Voiding Method Toilet Weight 127.006 kg GENERAL DESCRIPTION: Elderly male lying in bed, no distress. No tachypnea or accessory muscle of respiration use. HEENT: Shows Pallor , no scleral icterus. Oral mucous membrane is dry. No pharyngeal erythema or thrush NECK: Trachea central, no thyromegaly. LUNGS: Unlabored breathing. Decreased intensity of breath sounds. No wheeze or crackle. HEART: S1, S2, regular rate and rhythm. No loud murmur ABDOMEN: Soft, no tenderness EXTREMITIES: No edema of feet. SKIN: No rash, no masses palpable. NEUROLOGICAL: The patient is awake, alert, oriented x3, mood and affect normal. Results CBC & Chem 7: 07/18/23 06:37 07/18/23 06:37 Labs: Abnormal Lab Results - Last 24 Hours (Table) 07/16/23 07/16/23 07/16/23 Range/Units 11:51 11:51 11:51 Lymphocytes # 0.9 L (1.0-4.8) k/uL Glucose 190 H (74-99) mg/dL SARS-CoV-2 (PCR) Detected A (Not Detectd) Assessment and Plan (1) COVID-19 Status: Acute Code(s): U07.1 - COVID-19 SNOMED Code(s): 882280184 (2) UTI (urinary tract infection) Status: Acute Code(s): N39.0 - URINARY TRACT INFECTION, SITE NOT SPECIFIED SNOMED Code(s): 68658467 Plan: 1patient was in the hospital with weakness which is likely multifactorial in this patient also having a low-grade fever source for likely acute COVID-19 infection however no evidence of any pneumonia on the chest x-ray patient not hypoxic treatment review most supportive. 2patient also has some urinary symptom positive UA concerning for UTI failing outpatient oral Cipro therapy. 3diarrhea with exposure antibiotics will need to rule out C. difficile colitis. 4we will discontinue Cipro start the patient on Rocephin only waiting for urine culture to finalize 5check a stool for C. difficile. 6add zinc ascorbic acid no need for steroids or remdesivir 7droplet isolation We will follow on clinical condition and cultures to further adjust medication if needed Thank you for this consultation we will follow the patient along with you Dictation was produced using [employer] dictation software. please excuse any grammatical, word or spelling errors. Time with Patient: Greater than 30
[2023-07-17] MEDS: FLUTICASONE 110 MCG INHALER INHALATION SCH ×2 (09:22→21:13)
[2023-07-17] MEDS: TAMSULOSIN 0.4 MG CAP.ER.24H PO SCH (10:02)
[2023-07-17] MEDS: ZINC SULFATE 220 MG CAP PO SCH (10:04)
[2023-07-17] MEDS: ASCORBIC ACID 500 MG TAB PO SCH (10:04)
[2023-07-17] MEDS: CIPROFLOXACIN HCL 500 MG TAB PO SCH (10:17)
[2023-07-17 11:11] LABS: Basophils # (A) 0.02 X 10*3/uL (0.00-0.10); Basophils % (A) 0.3 %; Eosinophils # (A) 0.01 X 10*3/uL (0.04-0.35); Eosinophils % (A) 0.1 %; HCT 41.6 % (39.6-50.0); HGB 13.9 g/dL (13.0-17.0); Lymphocytes # (A) 1.11 X 10*3/uL (0.90-5.00); Lymphocytes % (A) 14.9 %; MCH 30.9 pg (27.0-32.0); MCHC 33.4 g/dL (32.0-37.0); MCV 92.4 FL (80.0-97.0); Mean Platelet Volume 9.7 FL (9.5-12.2); Monocytes % (A) 8.1 %; NRBC Per 100 WBC 0 X 10*3/uL (0.00-0.01); Neutrophils # (A) 5.69 X 10*3/uL (1.80-7.70); Neutrophils % (A) 76.3 %; Platelet Count 159 X 10*3/uL (140-440); RDW 13.3 % (11.5-14.5); WBC 7.45 X 10*3/uL (4.50-10.00)
[2023-07-17 11:25] LABS: Glucose,Whole Blood 167 mg/dL (70-110)
[2023-07-17 11:32] LABS: Blood Urea Nitrogen 16.4 mg/dL (9.0-27.0); Calcium 8.9 mg/dL (8.7-10.3); Carbon Dioxide 24.3 mmol/L (21.6-31.8); Chloride 102 mmol/L (96-109); Glucose 163 mg/dL (70-110); Potassium 4.3 mmol/L (3.5-5.5); Sodium 138 mmol/L (135-145)
--- NOTE | 2023-07-17 14:26 | PN ---
PROGRESS NOTE DATE OF SERVICE: 07/17/2023 SUBJECTIVE: This is an 82-year-old gentleman admitted with fever, UTI, and COVID-19 infection with failure of outpatient treatment, has some dehydration, still complaining of weak. Cultures are pending at this time. No chest pain. No palpitations. No fever. PHYSICAL EXAMINATION: VITAL SIGNS: Pulse 82, blood pressure 147/72, respirations 19. CHEST: Clear to auscultation. ABDOMEN: Soft. NERVOUS SYSTEM: Diffusely weak. LABORATORY DATA: Reviewed. ASSESSMENT: 1. Fever with possible acute urinary tract infection with failure of outpatient treatment. 2. Acute COVID-19 infection. 3. Weakness and dehydration. 4. Diabetes mellitus, type 2. 5. Hypertension. 6. Hyperlipidemia. 7. Urinary tract infection, present on admission. RECOMMENDATION: Recommend to continue with current medications. Cautious hydration. Repeat labs in the morning. Await cultures. The patient will need hospitalization for more than 2 nights to evaluate and treat the above-mentioned medical issues. Recommend full admit. MMODL / IJN: [id number] /
--- NOTE | 2023-07-17 16:55 | P.PN ---
Subjective Progress Note Date: 07/17/23 Principal diagnosis: Reason for follow-up is covid 19 and UTI Patient is a 82-year-old male with a past medical history significant for diabetes mellitus hypertension hyperlipidemia patient presenting to the hospital for evaluation of weakness, diarrhea and recent treatment of UTI with Cipro, patient did tested positive for covid19 , however chest x-ray didn't show any acute infiltrate On today's evaluation that is 07/17/2023, the patient denies any fever or any c hills, the patient is breathing comfortably on room air and denies any shortness of breath, the patient denies any chest pain, did have occasional dry cough, patient denies nausea/vomiting /diarrhea and no abdominal pain Patient did have white count of 7.45, creatinine 1.0 Objective - Vital Signs Vital signs: Vital Signs Temp 98.4 F 07/17/23 08:00 Pulse 82 07/17/23 08:00 Resp 19 07/17/23 08:00 BP 146/72 07/17/23 08:00 Pulse Ox 94 L 07/17/23 08:00 FiO2 Intake & Output 07/16/23 07/17/23 07/17/23 18:59 06:59 18:59 Intake Total 900 Output Total 390 Balance 510 Weight 127.006 kg 127.006 kg Intake: Intake, IV Titration 900 Amount Sodium Chloride 0.9% 1, 900 000 ml @ 75 mls/hr IV . [id number] [facility] Rx#:[id number] Output: Urine 390 Other: Voiding Method Toilet Toilet # Voids 2 # Bowel Movements 1 - Exam GENERAL DESCRIPTION: An elderly male lying in bed in no distress RESPIRATORY SYSTEM: Unlabored breathing , clear to auscultation anteriorly HEART: S1 S2 regular rate and rhythm , ABDOMEN: Soft , no tenderness EXTREMITIES: No edema feet - Labs CBC & Chem 7: 07/17/23 06:20 07/17/23 06:20 Labs: Abnormal Lab Results - Last 24 Hours (Table) 07/16/23 07/16/23 07/17/23 Range/Units 11:51 20:58 06:20 Eosinophils # 0.01 L (0.04-0.35) X 10*3/uL Glucose (70-110) mg/dL POC Glucose (mg/dL) 186 H (70-110) mg/dL Hemoglobin A1c (<=6.0) % Urine Protein 2+ H (Negative) Urine Glucose (UA) 1+ H (Negative) Urine Ketones 1+ H (Negative) Urine Blood Small H (Negative) Ur Leukocyte Esterase Large H (Negative) Urine RBC 21 H (0-5) /hpf Urine WBC 162 H (0-5) /hpf Urine Mucus Many H (None) /hpf 07/17/23 07/17/23 07/17/23 Range/Units 06:20 06:20 06:26 Eosinophils # (0.04-0.35) X 10*3/uL Glucose 163 H (70-110) mg/dL POC Glucose (mg/dL) 176 H (70-110) mg/dL Hemoglobin A1c 7.5 H (<=6.0) % Urine Protein (Negative) Urine Glucose (UA) (Negative) Urine Ketones (Negative) Urine Blood (Negative) Ur Leukocyte Esterase (Negative) Urine RBC (0-5) /hpf Urine WBC (0-5) /hpf Urine Mucus (None) /hpf 07/17/23 Range/Units 11:22 Eosinophils # (0.04-0.35) X 10*3/uL Glucose (70-110) mg/dL POC Glucose (mg/dL) 167 H (70-110) mg/dL Hemoglobin A1c (<=6.0) % Urine Protein (Negative) Urine Glucose (UA) (Negative) Urine Ketones (Negative) Urine Blood (Negative) Ur Leukocyte Esterase (Negative) Urine RBC (0-5) /hpf Urine WBC (0-5) /hpf Urine Mucus (None) /hpf Assessment and Plan (1) COVID-19 Current Visit: Yes Status: Acute Code(s): U07.1 - COVID-19 SNOMED Code(s): 215590664 (2) UTI (urinary tract infection) Current Visit: Yes Status: Acute Code(s): N39.0 - URINARY TRACT INFECTION, SITE NOT SPECIFIED SNOMED Code(s): 09564537 Plan: 1patient was in the hospital with weakness which is likely multifactorial in this patient also having a low-grade fever source for likely acute COVID-19 infection however no evidence of any pneumonia on the chest x-ray patient not hypoxic treatment review most supportive. 2patient also has some urinary symptom positive UA concerning for UTI failing outpatient oral Cipro therapy. 3diarrhea with exposure antibiotics , patient did have resolution of his diarrhea 4patient to continue with the Rocephin along with zinc ascorbic acid and monitor clinical course closely Dictation was produced using [employer] dictation software. please excuse any grammatical, word or spelling errors. Time with Patient: Less than 30
[2023-07-17 20:06] LABS: Glucose,Whole Blood 165 mg/dL (70-110)
[2023-07-17] MEDS: atenoloL 50 MG TAB PO SCH (20:44)
[2023-07-18 06:24] LABS: Glucose,Whole Blood 156 mg/dL (70-110)
[2023-07-18] MEDS: SODIUM CHLORIDE 0.9% 1,000 ML IV SCH (06:44)
[2023-07-18] MEDS: INSULIN ASPART (NovoLOG) 100 UNIT/ML VIAL SQ SCH ×2 (06:56→11:46)
[2023-07-18] MEDS: FLUTICASONE 110 MCG INHALER INHALATION SCH (08:46)
[2023-07-18 08:59] VITALS: BP 122/55; PULSE 64; RESP 15; TEMP 98.4
[2023-07-18] MEDS: ASCORBIC ACID 500 MG TAB PO SCH (09:54)
[2023-07-18] MEDS: ZINC SULFATE 220 MG CAP PO SCH (09:54)
[2023-07-18] MEDS: TAMSULOSIN 0.4 MG CAP.ER.24H PO SCH (09:54)
[2023-07-18 10:59] LABS: Basophils # (A) 0.02 X 10*3/uL (0.00-0.10); Basophils % (A) 0.3 %; Eosinophils # (A) 0.04 X 10*3/uL (0.04-0.35); Eosinophils % (A) 0.7 %; HCT 40.1 % (39.6-50.0); HGB 13.7 g/dL (13.0-17.0); Lymphocytes # (A) 1.28 X 10*3/uL (0.90-5.00); Lymphocytes % (A) 22.2 %; MCH 30.9 pg (27.0-32.0); MCHC 34.2 g/dL (32.0-37.0); MCV 90.3 FL (80.0-97.0); Mean Platelet Volume 9.1 FL (9.5-12.2); Monocytes # (A) 0.63 X 10*3/uL (0.20-1.00); Monocytes % (A) 10.9 %; NRBC Per 100 WBC 0 X 10*3/uL (0.00-0.01); Neutrophils # (A) 3.79 X 10*3/uL (1.80-7.70); Neutrophils % (A) 65.7 %; Platelet Count 171 X 10*3/uL (140-440); RBC 4.44 X 10*6/uL (4.40-5.60); RDW 13.4 % (11.5-14.5); WBC 5.77 X 10*3/uL (4.50-10.00)
[2023-07-18 11:01] LABS: BUN/Creat Ratio 15.33 Ratio (12.00-20.00); Blood Urea Nitrogen 13.8 mg/dL (9.0-27.0); Calcium 8.8 mg/dL (8.7-10.3); Carbon Dioxide 22.6 mmol/L (21.6-31.8); Chloride 104 mmol/L (96-109); Glucose 160 mg/dL (70-110); Potassium 3.9 mmol/L (3.5-5.5); Sodium 139 mmol/L (135-145)
[2023-07-18 11:24] LABS: Glucose,Whole Blood 175 mg/dL (70-110)
--- NOTE | 2023-07-18 15:36 | P.PN ---
Subjective Progress Note Date: 07/18/23 Principal diagnosis: Reason for follow-up is covid 19 and UTI Patient is a 82-year-old male with a past medical history significant for diabetes mellitus hypertension hyperlipidemia patient presenting to the hospital for evaluation of weakness, diarrhea and recent treatment of UTI with Cipro, patient did tested positive for covid19 , however chest x-ray didn't show any acute infiltrate On today's evaluation that is 07/18/2023 the patient remains to be afebrile, the patient is breathing comfortably on room air and no need for oxygen. The patient denies shortness of breath denies any chest pain or cough, patient denies nausea/vomiting or diarrhea and no abdominal pain. Patient white count of 5.77, creatinine 0.9 Objective - Vital Signs Vital signs: Vital Signs Temp 98.4 F 07/18/23 08:54 Pulse 64 07/18/23 10:45 Resp 15 07/18/23 10:45 BP 122/55 07/18/23 08:54 Pulse Ox 97 07/18/23 08:54 FiO2 Intake & Output 07/17/23 07/18/23 07/18/23 18:59 06:59 18:59 Output Total 600 Balance -600 Weight 127.006 kg Output: Urine 600 Other: Voiding Method External Catheter External Catheter # Voids 4 # Bowel Movements 1 - Exam GENERAL DESCRIPTION: An elderly male lying in bed in no distress RESPIRATORY SYSTEM: Unlabored breathing , clear to auscultation anteriorly HEART: S1 S2 regular rate and rhythm , ABDOMEN: Soft , no tenderness EXTREMITIES: No edema feet - Labs CBC & Chem 7: 07/18/23 06:37 07/18/23 06:37 Labs: Abnormal Lab Results - Last 24 Hours (Table) 07/17/23 07/17/23 07/17/23 Range/Units 06:20 06:20 11:22 MPV (9.5-12.2) FL Anion Gap (4.00-12.00) mmol/L Glucose 163 H (70-110) mg/dL POC Glucose (mg/dL) 167 H (70-110) mg/dL Hemoglobin A1c 7.5 H (<=6.0) % C-Reactive Protein (<1.0) mg/dL 07/17/23 07/17/23 07/18/23 Range/Units 14:38 20:05 06:23 MPV (9.5-12.2) FL Anion Gap (4.00-12.00) mmol/L Glucose (70-110) mg/dL POC Glucose (mg/dL) 165 H 156 H (70-110) mg/dL Hemoglobin A1c (<=6.0) % C-Reactive Protein 7.1 H (<1.0) mg/dL 07/18/23 07/18/23 Range/Units 06:37 06:37 MPV 9.1 L (9.5-12.2) FL Anion Gap 12.40 H (4.00-12.00) mmol/L Glucose 160 H (70-110) mg/dL POC Glucose (mg/dL) (70-110) mg/dL Hemoglobin A1c (<=6.0) % C-Reactive Protein (<1.0) mg/dL Assessment and Plan (1) COVID-19 Status: Acute Code(s): U07.1 - COVID-19 SNOMED Code(s): 740881314 (2) UTI (urinary tract infection) Status: Acute Code(s): N39.0 - URINARY TRACT INFECTION, SITE NOT SPECIFIED SNOMED Code(s): 41069702 Plan: 1patient was in the hospital with weakness which is likely multifactorial in this patient also having a low-grade fever source for likely acute COVID-19 infection however no evidence of any pneumonia on the chest x-ray patient not hypoxic treatment review most supportive. 2patient also has some urinary symptom positive UA concerning for UTI failing outpatient oral Cipro therapy, and a urine culture were done short course of oral Ceftin on discharge discussed with the admitting team along with zinc and ascorbic acid no need for antiviral Dictation was produced using aitainment dictation software. please excuse any grammatical, word or spelling errors. Time with Patient: Less than 30
--- NOTE | 2023-07-19 05:47 | DS ---
DISCHARGE SUMMARY FINAL DIAGNOSES: 1. Fever with possible acute urinary tract infection with failure of outpatient treatment, improved. 2. Acute COVID-19 infection. 3. Weakness and dehydration. 4. Diabetes mellitus, type 2. 5. Hypertension. 6. Hyperlipidemia. DISCHARGE DISPOSITION: The patient will be discharged in stable condition. Guarded prognosis. HISTORY OF PRESENT ILLNESS: This is an 82-year-old gentleman who was admitted with failure of outpatient UTI as well as COVID-19. The patient was significantly empirically treated. PHYSICAL EXAMINATION: VITAL SIGNS: Stable. CARDIOVASCULAR: Normal. ABDOMEN: Soft. DISCHARGE MEDICATIONS: The patient will be discharged with followup with the primary physician and follow up with Ceftin 500 mg p.o. b.i.d. for 3 more days and continue with p.o. hydration. See discharge medication reconciliation for further details. MMODL / IJN: [id number] /
== END 2023-07-18 15:08 | disposition home or self-care (01) | DRG 689 ==
LOC: EC 10:59 → SUPCPDRO 10:59 → 4SSUR 15:00 → OBSVTOIN 07-17 13:32
PROVIDERS: ADMIT Hospitalist; ATTEND Hospitalist
DX: N39.0 Urinary tract infection, site not specified (principal); U07.1 COVID-19; B95.7 Other staphylococcus as the cause of diseases classified elsewhere; E78.5 Hyperlipidemia, unspecified; E86.0 Dehydration; E53.1 Pyridoxine deficiency; Z20.822 Contact with and (suspected) exposure to COVID-19; Z79.899 Other long term (current) drug therapy; Z87.440 Personal history of urinary (tract) infections; Z90.49 Acquired absence of other specified parts of digestive tract
CPT/HCPCS: 36415; 71046; 80048; 80053; 81001; 83036; 83735; 83880; 84484; 85025; 85379; 85610; 85730; 86140; 87040; 87077; 87086; 87186; 87324; 87636; 93005; 94640; 96360; 99285